=== PATIENT | female | born 1990 | race Two or more races ===

== ENCOUNTER → 2017-03-08 | Outpatient (CLI) | payer OTHER ==
[2014-06-13 12:54] VITALS: BP 142/90
--- NOTE | 2017-03-09 07:10 | US ---
HISTORY: IUP Study: Ob sonogram Comparison: None Technique: Multiple grayscale sonographic images were obtained. Findings: There is a single intrauterine gestation in vertex presentation. The placenta is posterior. Amniotic fluid volume was visually normal. heart rate 154 beats per minute. Survey of anatomy demonstrated normal 4 chamber heart, stomach, bladder, bilateral kidneys, bi lateral upper and lower extremities, 3 vessel cord and cord insertion, intact spine, and facia l features. Biparietal diameter 7.87 centimeters corresponding to 31 weeks 4 days. Head circumference 27.75 cent imeters corresponding to 30 weeks 2 days. Abdominal circumference 25.98 centimeters corresponding to 30 weeks 1 day. Femur length 5.79 centimeters corresponding to 30 weeks 2 days. IMPRESSION: Single viable intrauterine gestation 30 weeks +/-1 week gestational age with an estimated date of May 13, 2017 Reported By:
== END ==
LOC: RAD 15:22
PROVIDERS: ATTEND Obstetrics & Gynecology Obstetrics
DX: Z34.83 Encounter for supervision of other normal pregnancy, third trimester (principal); Z3A.30 30 weeks gestation of pregnancy

== ENCOUNTER 2017-05-24 06:22 | Inpatient (IN) | payer OTHER ==
[2017-05-24] MEDS ORDERED: NS 50 ML IV + SPIKE MINIBAG* 50 ML IV ONE (06:25)
[2017-05-24] MEDS ORDERED: ANCEF VIAL 1 GM ONE (06:25)
[2017-05-24] MEDS ORDERED: LR 1000 ML IV 1,000 ML IV ONE (06:51)
[2017-05-24] MEDS ORDERED: BICITRA 30 ML PO ONE (06:52)
[2017-05-24 07:04] LABS: BASOPHILS % (AUTO) 0.3 % (0.2-1.0); EOSINOPHILS # (AUTO) 0.2 x10^3/uL (0.0-0.2); EOSINOPHILS % (AUTO) 1.4 % (0.9-2.9); HEMATOCRIT 34.7 % (36.0-47.0); HEMOGLOBIN 12.2 g/dL (12.0-16.0); LYMPHOCYTES # (AUTO) 3.2 X10^3/uL (1.3-2.9); MEAN CORPUSCULAR HEMOGLOBIN 31.9 pg (27.0-34.0); MEAN CORPUSCULAR HGB CONC 35.1 g/dL (33.0-35.0); MEAN CORPUSCULAR VOLUME 90.8 fL (80.0-100.0); MEAN PLATELET VOLUME 8.5 fL (7.4-11.0); MONOCYTES # (AUTO) 0.6 x10^3/uL (0.3-0.8); MONOCYTES % (AUTO) 5.8 % (0.0-13.0); NEUTROPHILS # (AUTO) 6.7 x10^3/uL (2.2-4.8); NEUTROPHILS % (AUTO) 62.5 % (42.0-75.0); PLATELET COUNT 233 X10^3/uL (150.0-450.0); RED BLOOD COUNT 3.82 X10^6/uL (3.5-5.4); RED CELL DISTRIBUTION WIDTH 13.8 % (11.6-16.5); WHITE BLOOD COUNT 10.8 X10^3/uL (3.6-10.0)
[2017-05-24 07:17] LABS: ALANINE AMINOTRANSFERASE 14 Units/L (12-78); ALBUMIN 2.5 g/dL (3.4-5.0); ALKALINE PHOSPHATASE 181 Units/L (46-116); ASPARTATE AMINO TRANSFERASE 16 Units/L (15-37); BLOOD UREA NITROGEN 9 mg/dL (7-18); CALCIUM 8.6 mg/dL (8.5-10.1); CARBON DIOXIDE 19.1 mmol/L (21-32); CHLORIDE 107 mmol/L (98-107); COR CA(FOR HYPOALB) 9.8 mg/dL (8.5-10.1); CREATININE 0.66 mg/dL (0.55-1.02); SODIUM 138 mmol/L (136-145); TOTAL PROTEIN 6.3 g/dL (6.4-8.2); eGFR BLACK RACES > 60 (>60); eGFR NON BLACK RACES > 60 (>60)
[2017-05-24] MEDS ORDERED: DURAMORPH ONE (07:26)
[2017-05-24] MEDS ORDERED: D5 1/2 NS 1L W PITOCIN 20 UNITS/L 20 UNITS/1,000 ML BAG IV ONE (08:37)
[2017-05-24] MEDS ORDERED: NS IRRIGATION 1000 ML 1,000 ML IR ONE (08:38)
[2017-05-24] MEDS ORDERED: MYLICON TAB 80 MG CHEW PO PRN (08:44)
[2017-05-24] MEDS ORDERED: TORADOL 30 MG VIAL IVP PRN (08:46)
[2017-05-24] MEDS ORDERED: REGLAN INJ 10 MG VIAL IVP PRN ×2 (08:46→09:01)
[2017-05-24] MEDS ORDERED: BENADRYL INJ 50 MG VIAL IVP PRN ×2 (08:46→09:01)
[2017-05-24] MEDS ORDERED: PERCOCET TAB 5/325 MG PO PRN (08:46)
[2017-05-24] MEDS ORDERED: NARCAN INJ IVP PRN (08:46)
[2017-05-24] MEDS ORDERED: D5 1/2 NS 1000 ML 1,000 ML with PITOCIN 20 UNITS IV SCH ×2 (09:00)
[2017-05-24] MEDS ORDERED: ZOFRAN INJ 4 MG VIAL IVP PRN (09:01)
[2017-05-24] MEDS ORDERED: DILAUDID INJ IVP PRN (09:01)
[2017-05-24] MEDS ORDERED: PHENERGAN INJ 25 MG IVP PRN (09:01)
[2017-05-24] MEDS ORDERED: DILAUDID INJ ONE (09:05)
[2017-05-24 09:25] LABS: BILIRUBIN,URINE NEGATIVE (NEGATIVE); BLOOD/HEMOGLOBIN,URINE 2+ (NEGATIVE); GLUCOSE, URINE NEGATIVE (NEGATIVE); KETONES,URINE NEGATIVE (NEGATIVE); LEUKOCYTE ESTERASE ,URINE NEGATIVE (NEGATIVE); NITRITES,URINE POSITIVE (NEGATIVE); PROTEIN,URINE 1+ (NEGATIVE); UROBILINOGEN,URINE NORMAL (NORMAL)
[2017-05-24 09:34] LABS: APPEARANCE,URINE CLEAR (CLEAR); BACTERIA,URINE TRACE /HPF (NEGATIVE); COLOR,URINE YELLOW (YELLOW); RBC,URINE 0-3 /HPF (NEGATIVE); SQUAMOUS EPITHELIAL CELL,UR FEW /HPF (NEGATIVE)
[2017-05-24] MEDS: PRENATAL PLUS PO SCH (10:01)
[2017-05-24] MEDS: ZANTAC PO SCH ×2 (10:02→20:55)
[2017-05-24] MEDS: MOTRIN TAB 800 MG PO PRN (20:55)
[2017-05-25 04:44] LABS: HEMATOCRIT 29.6 % (36.0-47.0); HEMOGLOBIN 10.3 g/dL (12.0-16.0)
[2017-05-25] MEDS: MOTRIN TAB 800 MG PO PRN ×2 (07:40→15:59)
[2017-05-25] MEDS: ZANTAC PO SCH ×2 (08:42→20:39)
[2017-05-25] MEDS: PRENATAL PLUS PO SCH (08:42)
[2017-05-26] MEDS: MOTRIN TAB 800 MG PO PRN ×2 (04:08→13:30)
[2017-05-26] MEDS: PRENATAL PLUS PO SCH (08:30)
[2017-05-26] MEDS: ZANTAC PO SCH (08:30)
[2017-05-26 09:19] VITALS: BP 123/78
[2017-05-26] MEDS ORDERED: PITOCIN ONE (09:47)
[2017-05-26] MEDS ORDERED: VERSED ONE (09:47)
[2017-05-26] MEDS ORDERED: ADACEL TDaP IM ONE (12:39)
== END 2017-05-26 14:45 | disposition home or self-care (01) | DRG 766 ==
LOC: LD 06:22 → ICU 09:27
PROVIDERS: ADMIT Obstetrics & Gynecology Obstetrics; ATTEND Obstetrics & Gynecology Obstetrics
PROC: 3E0234Z Introduction of Serum, Toxoid and Vaccine into Muscle, Percutaneous Approach (ICD-10-PCS; 2017-05-24)
PROC: 10D00Z1 Extraction of Products of Conception, Low, Open Approach (ICD-10-PCS; principal; 2017-05-24 07:30)
DX: O34.211 Maternal care for low transverse scar from previous cesarean delivery (principal); Z37.0 Single live birth; N85.8 Other specified noninflammatory disorders of uterus; Z3A.40 40 weeks gestation of pregnancy; Z23 Encounter for immunization
CPT/HCPCS: 36415; 80053; 81001; 85014; 85018; 85025; 86592; 86850; 86900; 86901; 87086; 94640; A4222; S0197; J0690; J1170; J1885; J2250; J2590; J2765

== ENCOUNTER → 2017-06-29 | Outpatient (CLI) | payer OTHER ==
--- NOTE | 2017-06-30 11:00 | US ---
History: Pelvic pain and tenderness Exam: Pelvic ultrasound Comparison: None Technique: Multiple grayscale and color flow Doppler images of the pelvis were obtained. Findings: The uterus measures 7.5 x 5.0 x 6.2 cm. There is questionable fluid within the endometrial canal whic h may reflect timing in the menstrual cycle. Endometrial thickening cannot be excluded. Recommend cli nical correlation and continued follow-up as indicated for further evaluation A small amount of fluid is noted within the cul-de-sac. The right ovary measures 3.6 x 2.0 x 2.8 cm. The left ovary measures 4.1 x 1.9 x 2.2 cm. Vascular flow is demonstrated in both ovaries. IMPRESSION: Suspected small amount of fluid within the endometrial canal as noted above. Small amount of fluid within the cul-de-sac. Reported By:
--- NOTE | 2017-06-30 15:22 | US ---
Abdominal ultrasound Indication: Nausea, epigastric pain Comparison: None Technique: Sonographic images of the abdomen were obtained per protocol. Findings: There are multiple calcified gallstones, with the largest measuring 1.7 cm. There are quest ionable stones within the hepatic duct. No significant biliary dilation is observed; the common duct measures 4 mm in diameter. There is no gallbladder distention, wall thickening, or pericholecystic fl uid. The liver, spleen, kidneys, and abdominal aorta are within normal limits. The pancreas is partia lly obscured, but grossly unremarkable. Impression: Cholelithiasis without evidence for acute cholecystitis. Questionable stones within the hepatic duct. No biliary dilation is observed. Consider further evalua tion with ERCP or MRCP, if indicated. Reported By:
== END | disposition home or self-care (01) | DRG 761 ==
LOC: RAD 09:50
PROVIDERS: ATTEND Obstetrics & Gynecology Obstetrics
DX: N80.0 Endometriosis of uterus (principal); R10.13 Epigastric pain; R11.0 Nausea; K80.80 Other cholelithiasis without obstruction
CPT/HCPCS: 76700; 76856

== ENCOUNTER 2017-07-11 15:48 | Observation (INO) | payer OTHER ==
[2017-07-11] MEDS ORDERED: MORPHINE SULFATE INJ 2 MG INJ IVP PRN ×4 (16:16→18:57)
[2017-07-11] MEDS ORDERED: ZOFRAN INJ 4 MG VIAL IVP PRN ×4 (16:16→18:57)
[2017-07-11 16:52] VITALS: BMI 36.3
[2017-07-11] MEDS ORDERED: LR 1000 ML IV 1,000 ML IV SCH ×2 (17:00)
[2017-07-11 17:35] LABS: BASOPHILS % (AUTO) 0.3 % (0.2-1.0); EOSINOPHILS # (AUTO) 0.2 x10^3/uL (0.0-0.2); EOSINOPHILS % (AUTO) 2.7 % (0.9-2.9); HEMATOCRIT 36.9 % (36.0-47.0); HEMOGLOBIN 13.2 g/dL (12.0-16.0); LYMPHOCYTES # (AUTO) 3.9 X10^3/uL (1.3-2.9); LYMPHOCYTES % (AUTO) 46.6 % (21.0-51.0); MEAN CORPUSCULAR HEMOGLOBIN 31.5 pg (27.0-34.0); MEAN CORPUSCULAR HGB CONC 35.8 g/dL (33.0-35.0); MEAN PLATELET VOLUME 7.3 fL (7.4-11.0); MONOCYTES # (AUTO) 0.4 x10^3/uL (0.3-0.8); MONOCYTES % (AUTO) 5.2 % (0.0-13.0); NEUTROPHILS # (AUTO) 3.8 x10^3/uL (2.2-4.8); NEUTROPHILS % (AUTO) 45.2 % (42.0-75.0); PLATELET COUNT 269 X10^3/uL (150.0-450.0); WHITE BLOOD COUNT 8.5 X10^3/uL (3.6-10.0)
[2017-07-11 17:48] LABS: ALANINE AMINOTRANSFERASE 36 Units/L (12-78); ALBUMIN 3.6 g/dL (3.4-5.0); ALKALINE PHOSPHATASE 125 Units/L (46-116); AMYLASE 58 Units/L (25-115); BLOOD UREA NITROGEN 14 mg/dL (7-18); CALCIUM 8.3 mg/dL (8.5-10.1); CARBON DIOXIDE 25.9 mmol/L (21-32); CHLORIDE 107 mmol/L (98-107); CREATININE 0.77 mg/dL (0.55-1.02); LIPASE 133 Units/L (73-393); SODIUM 142 mmol/L (136-145); TOTAL PROTEIN 6.9 g/dL (6.4-8.2); eGFR BLACK RACES > 60 (>60); eGFR NON BLACK RACES > 60 (>60)
[2017-07-11 18:09] LABS: ASPARTATE AMINO TRANSFERASE 23 Units/L (15-37)
--- NOTE | 2017-07-11 22:14 | US ---
Gallbladder sonogram Indication: Right upper quadrant pain with nausea Comparison: None available Technique: Real-time grayscale or Doppler imaging of the right upper quadrant was performed. Findings: Gallbladder contains multiple gallstones; however, the gallbladder wall is normal in thickn ess without gallbladder distention or pericholecystic fluid. The visualized liver demonstrates no foc al hepatic lesion or bile duct dilatation. No hydronephrosis identified within the right kidney. Impression: Cholelithiasis without sonographic evidence of acute cholecystitis. Reported By:
[2017-07-12] MEDS ORDERED: LR 1000 ML IV 1,000 ML IV SCH (01:00)
[2017-07-12] MEDS: LR 1000 ML IV 1,000 ML IV SCH ×3 (01:25→17:32)
[2017-07-12 06:02] LABS: SERUM PREGNANCY TEST, QUAL NEGATIVE <10 mIU/mL
[2017-07-12] MEDS ORDERED: LTA KIT LIDOCAINE 4% ONE (10:21)
[2017-07-12] MEDS ORDERED: NEOSTIGMINE INJ ONE (10:21)
[2017-07-12] MEDS ORDERED: DIPRIVAN VIAL ONE (10:21)
[2017-07-12] MEDS ORDERED: NORCURON INJ 10 MG VIAL ONE (10:21)
[2017-07-12] MEDS ORDERED: SUPRANE IN ONE (10:21)
[2017-07-12] MEDS ORDERED: ZOFRAN INJ 4 MG VIAL ONE (10:21)
[2017-07-12] MEDS ORDERED: ROBINUL ONE ×2 (10:21→13:09)
[2017-07-12] MEDS ORDERED: QUELICIN (OR ANECTINE) ONE (10:21)
[2017-07-12] MEDS ORDERED: XYLOCAINE 2 % (PLAIN) ONE (10:21)
[2017-07-12] MEDS ORDERED: VERSED ONE (10:21)
[2017-07-12] MEDS ORDERED: FENTANYL INJ 250 mcg ONE (19:20)
[2017-07-12] MEDS ORDERED: MARCAINE 0.25% INJ ONE (19:42)
[2017-07-12] MEDS ORDERED: XYLOCAINE 1% and EPINEPHRINE 1:100,000 ONE (19:42)
[2017-07-12] MEDS ORDERED: ANCEF VIAL 1 GM ONE (19:54)
[2017-07-12] MEDS ORDERED: LR 1000 ML IV 1,000 ML IV ONE (19:55)
[2017-07-12] MEDS ORDERED: NS IRRIGATION 1000 ML 1,000 ML IR ONE ×2 (20:07→20:45)
[2017-07-12] MEDS ORDERED: FENTANYL INJ 100 mcg ONE (20:08)
[2017-07-12] MEDS ORDERED: DILAUDID INJ ONE (20:42)
[2017-07-12] MEDS ORDERED: BENADRYL INJ 50 MG VIAL IVP PRN (21:22)
[2017-07-12] MEDS ORDERED: ZOFRAN INJ 4 MG VIAL IVP PRN (21:22)
[2017-07-12] MEDS ORDERED: PHENERGAN INJ 25 MG IVP PRN (21:22)
[2017-07-12] MEDS ORDERED: DILAUDID INJ IVP PRN (21:22)
[2017-07-12] MEDS ORDERED: REGLAN INJ 10 MG VIAL IVP PRN (21:22)
--- NOTE | 2017-07-12 21:23 | OR.GENERIC ---
Post-Op Note Generic - Post-Op Note Operative Report: Operative Report Date of Operation: July 12, 2017 Pre-Operative Diagnosis: Symptomatic cholelithiasis. Post-Operative Diagnosis: Symptomatic cholelithiasis Procedure: Laparoscopic cholecystectomy. Surgeon: Miguel Ángel Pleitez MD. Well Tender: Tyrone Nance CRNA. Specimen: Gallbladder. Estimated blood loss: Minimal. Complications: None. Summary: The patient is a 26 year old female who presented with symptomatic cholelithiasis. The patient was offered cholecystectomy. The risk and benefits of the procedure including difficulty with anesthesia, bleeding, infection, conversion to open procedure, bile leak, hernia formation, DVT, as well as PE were discussed with the patient. The patient understood these risks and requested the procedure. On July 12, 2017, the patient was brought to the operative theatre. A time out was performed verifying the patient and procedure. The patient received Ancef for pre-operative antibiosis. After satisfactory induction of general endotracheal anesthesia, the abdomen was prepped with Chloraprep and draped in the usual sterile fashion. The skin and subcutaneous tissue inferior to the umbilicus was anesthetized using local anesthetic. The skin was incised sharply. A 12 mm trocar was placed though the incision and into the peritoneal cavity using the Nitin technique. Carbon dioxide was infiltrated through this trocar to obtain a pneumoperitoneum of 15 mm Hg. A camera was placed through this trocar and swept in all directions. No injury was seen from entering the peritoneal cavity. A site was selected in the subxiphoid location for our 2nd trocar. The skin and fascia was anesthetized using local anesthetic. The skin was incised sharply. A 5 mm trocar was placed into the peritoneal cavity under direct visualization. In a similar manner, two additional 5 mm trocars were placed. The first was placed in the mid-clavicular line approximately 2 fingerbreadths inferior to the left costal margin and a second in the anterior axillary line approximately 2 fingerbreadths inferior to the left costal margin. The patient was placed in reverse Trendelenburg and rotated to the patients left. The gallbladder was grasped at the fundus and elevated cephalad and slightly lateral. The peritoneum on the medial and lateral aspects of the infundibulum of the gallbladder was scored using hook electrocautery. Using blunt dissection, the cystic artery and duct were isolated. The critical view of safety was obtained. Both of these structures were divided between endoclips. The gallbladder was dissected free using hook electrocautery. A small branch of the cystic artery was seen with active bleeding. This was controlled with an endoclip. No further bleeding was seen. The gallbladder was placed in an endobag and removed through the umbilical trocar site without difficulty. The trocar and camera were placed back inside the abdomen. Our clips were noted in good position. Bleeding of the gallbladder fossa was controlled using electrocautery. At this point, the 5 mm trocars were removed under direct visualization. No bleeding was seen. The umbilical trocar was then removed and pneumoperitoneum released. The fascia at the umbilicus was closed using a 0-Vicryl placed in a [id number] configuration. The skin edges at all incisions were re-approximated using inverted, interrupted 4-0 Monocryl sutures. Mastisol and Steri-strips were placed. Sterile dressings were placed. The patient was awakened and taken to the recovery room in stable condition. There were no complications. All counts were correct.
[2017-07-13] MEDS: LR 1000 ML IV 1,000 ML IV SCH ×2 (00:04→09:25)
[2017-07-13 04:51] LABS: ALANINE AMINOTRANSFERASE 70 Units/L (12-78); ALBUMIN 3.1 g/dL (3.4-5.0); ALKALINE PHOSPHATASE 100 Units/L (46-116); ASPARTATE AMINO TRANSFERASE 70 Units/L (15-37); BLOOD UREA NITROGEN 9 mg/dL (7-18); CALCIUM 8.2 mg/dL (8.5-10.1); CARBON DIOXIDE 24.1 mmol/L (21-32); CHLORIDE 105 mmol/L (98-107); COR CA(FOR HYPOALB) 8.9 mg/dL (8.5-10.1); CREATININE 0.61 mg/dL (0.55-1.02); SODIUM 138 mmol/L (136-145); TOTAL PROTEIN 6.1 g/dL (6.4-8.2); eGFR BLACK RACES > 60 (>60); eGFR NON BLACK RACES > 60 (>60)
[2017-07-13 04:52] LABS: BASOPHILS % (AUTO) 0.2 % (0.2-1.0); EOSINOPHILS % (AUTO) 0.1 % (0.9-2.9); HEMATOCRIT 35.7 % (36.0-47.0); HEMOGLOBIN 12.4 g/dL (12.0-16.0); LYMPHOCYTES % (AUTO) 17.7 % (21.0-51.0); MEAN CORPUSCULAR HEMOGLOBIN 30.9 pg (27.0-34.0); MEAN CORPUSCULAR HGB CONC 34.8 g/dL (33.0-35.0); MEAN CORPUSCULAR VOLUME 88.7 fL (80.0-100.0); MEAN PLATELET VOLUME 7.6 fL (7.4-11.0); MONOCYTES # (AUTO) 0.4 x10^3/uL (0.3-0.8); MONOCYTES % (AUTO) 3.7 % (0.0-13.0); NEUTROPHILS # (AUTO) 8.8 x10^3/uL (2.2-4.8); NEUTROPHILS % (AUTO) 78.3 % (42.0-75.0); PLATELET COUNT 242 X10^3/uL (150.0-450.0); RED BLOOD COUNT 4.03 X10^6/uL (3.5-5.4); RED CELL DISTRIBUTION WIDTH 14.1 % (11.6-16.5); WHITE BLOOD COUNT 11.2 X10^3/uL (3.6-10.0)
[2017-07-13] MEDS: PERCOCET TAB 5/325 MG PO PRN ×2 (06:58)
[2017-07-13 09:18] VITALS: BP 117/82
== END 2017-07-13 10:35 | disposition home or self-care (01) ==
LOC: OBS 15:48
PROVIDERS: ADMIT Obstetrics & Gynecology Obstetrics; ATTEND Obstetrics & Gynecology Obstetrics
PROC: 0FB44ZZ Excision of Gallbladder, Percutaneous Endoscopic Approach (ICD-10-PCS; principal; 2017-07-12 12:30)
DX: K80.20 Calculus of gallbladder without cholecystitis without obstruction (principal); R11.2 Nausea with vomiting, unspecified; R10.11 Right upper quadrant pain; K90.49 Malabsorption due to intolerance, not elsewhere classified
CPT/HCPCS: 36415; 76705; 80053; 82150; 83690; 84703; 85025; A4216; A4222; S0020; G0378; J0330; J0690; J1170; J2001; J2250; J2270; J2405; J2710; J3010; J3490; J7120

== ENCOUNTER 2025-03-03 06:39 | Inpatient (IN) ==
[2025-03-03] MEDS ORDERED: NUBAIN INJ 20 MG AMP IVP PRN (06:50)
[2025-03-03] MEDS ORDERED: ZOFRAN INJ 4 MG VIAL IVP PRN ×2 (06:50→09:06)
[2025-03-03] MEDS ORDERED: REGLAN INJ 10 MG VIAL IVP PRN ×2 (06:50→09:06)
[2025-03-03] MEDS: LR 1,000 ML IV 1,000 ML IV ONE (07:04)
[2025-03-03] MEDS: LR 1,000 ML IV 1,000 ML IV SCH (07:04)
[2025-03-03] MEDS: VERSED ONE (07:28)
[2025-03-03] MEDS: PRECEDEX INJ VIAL ONE (07:29)
[2025-03-03] MEDS: MARCAINE SPINAL ONE (07:31)
[2025-03-03] MEDS: XYLOCAINE 2 % (PLAIN) ONE (07:31)
[2025-03-03 07:33] LABS: MEAN PLATELET VOLUME 8.2 fL (7.4-11.0); RED CELL DISTRIBUTION WIDTH 14.1 % (11.6-16.5)
[2025-03-03 07:39] LABS: CREATININE 0.59 mg/dL (0.55-1.02); eGFR NON BLACK RACES > 60 (>60)
[2025-03-03] MEDS: ANCEF VIAL 1 GRAM IVP ONE (08:03)
[2025-03-03] MEDS: ANCEF VIAL 1 GRAM ONE (08:03)
[2025-03-03] MEDS: LR 1,000 ML IV 1,000 ML IV PRN (08:17)
[2025-03-03] MEDS: ANCEF VIAL 1 GRAM IV PRN (08:18)
[2025-03-03] MEDS: PRECEDEX INJ VIAL IVP PRN (08:26)
[2025-03-03] MEDS: PITOCIN IVP PRN (08:42)
[2025-03-03] MEDS: ZOFRAN INJ 4 MG VIAL IVP PRN (08:45)
[2025-03-03] MEDS: ZOFRAN INJ 4 MG VIAL ONE (08:45)
[2025-03-03] MEDS: ROBINUL ONE (08:47)
[2025-03-03] MEDS: ROBINUL IVP PRN (08:49)
[2025-03-03] MEDS: EPHEDRINE SULFATE INJ IVP PRN (08:56)
[2025-03-03] MEDS: EPHEDRINE SULFATE INJ ONE (08:57)
[2025-03-03] MEDS: VERSED IVP PRN (09:01)
[2025-03-03] MEDS ORDERED: BENADRYL INJ 50 MG VIAL IVP PRN (09:06)
[2025-03-03] MEDS ORDERED: DILAUDID INJ IVP PRN (09:06)
[2025-03-03 09:17] LABS: BLOOD/HEMOGLOBIN,URINE 3+ (NEGATIVE); LEUKOCYTE ESTERASE ,URINE NEGATIVE (NEGATIVE); NITRITES,URINE NEGATIVE (NEGATIVE)
[2025-03-03 09:19] LABS: APPEARANCE,URINE CLEAR (CLEAR)
[2025-03-03 09:27] LABS: SQUAMOUS EPITHELIAL CELL,UR RARE /HPF (NEGATIVE)
[2025-03-03] MEDS ORDERED: NARCAN INJ IVP PRN ×2 (09:50)
[2025-03-03] MEDS ORDERED: MYLICON TAB 80 MG CHEW PO PRN (09:50)
[2025-03-03] MEDS: PERCOCET TAB 5/325 MG PO PRN (12:33)
[2025-03-03] MEDS: NS 100 ML IV 100 ML with VENOFER 400 MG IV ONE (13:43)
[2025-03-03] MEDS: TORADOL 30 MG VIAL IVP PRN (13:47)
[2025-03-03] MEDS: OXYTOCIN 20 UNIT/1,000 ML-NS 20 UNIT/1,000 ML PLAST..BAG IV SCH (14:19)
[2025-03-03] MEDS: MOTRIN TAB 800 MG PO PRN (16:50)
[2025-03-04] MEDS: ADACEL or BOOSTRIX TDaP VACCINE IM ONE (03:59)
[2025-03-04] MEDS: PRENATAL PLUS PO SCH (08:36)
[2025-03-04] MEDS: NS 100 ML IV 100 ML with VENOFER 400 MG IV ONE (09:35)
[2025-03-04 09:54] VITALS: RESP 20
[2025-03-04 11:46] VITALS: BP 107/55; PULSE 56; TEMP 97.5; O2SAT 95
== END 2025-03-04 13:00 | disposition home or self-care (01) | DRG 785 ==
LOC: LD 06:39 → MED/SURG 09:40
PROVIDERS: ADMIT Obstetrics & Gynecology Obstetrics; ATTEND Obstetrics & Gynecology Obstetrics
DX: N85.8 Other specified noninflammatory disorders of uterus; O32.8XX0 Maternal care for other malpresentation of fetus, not applicable or unspecified; Z3A.39 39 weeks gestation of pregnancy; O34.211 Maternal care for low transverse scar from previous cesarean delivery; Z30.2 Encounter for sterilization; Z37.0 Single live birth